=== PATIENT | female | born 1965 | race Caucasian/White ===

== ENCOUNTER 2023-07-17 17:05 | Emergency (ER) | payer BC, SELFPAY ==
[2023-07-17 17:11] VITALS: BP 161/100
[2023-07-17 17:35] LABS: % Basophils 1.2 % (0-2); % Eosinophils 6.1 % (0-6); % Immature Granulocytes 0.3 % (0-0.5); % Lymphocytes 31.2 % (20.5-51.1); % Monocytes 7.1 % (1.7-9.3); % Neutrophils 54.1 % (42.2-75.2); Absolute Basophils 0.1 10^3/uL (0-0.2); Absolute Eosinophils 0.6 10^3/uL (0-0.7); Absolute Lymphocytes 3.2 10^3/uL (1.2-3.4); Absolute Monocytes 0.7 10^3/uL (0.1-0.6); Absolute Neutrophils 5.6 10^3/uL (1.4-6.5); Mean Corp Hgb Conc. 36.6 g/dL (33.0-37.0); Mean Corpuscular Hgb 32.7 pg (27.0-31.0); Mean Corpuscular Volume 89.3 fL (81.0-99.0); Mean Platelet Volume 10.5 fL (7.4-10.4); Nucleated Red Blood Cells % 0 %; Platelet Count 288 10^3/uL (130-400); Red Blood Cell Count 4.59 10^6/uL (4.20-5.40); Red Cell Dist. Width 11.7 % (11.5-14.5); White Blood Cell Count 10.3 10^3/uL (4.8-10.8)
[2023-07-17 17:57] LABS: ALT (SGPT) 71 U/L (0-35); AST (SGOT) 74 U/L (14-36); Albumin 4.9 g/dl (3.5-5.0); Alkaline Phosphatase 99 U/L (38-126); Blood Urea Nitrogen 12 mg/dl (7-17); Calcium 9.9 mg/dl (8.4-10.2); Carbon Dioxide 17 mmol/L (22-30); Chloride 106 mmol/L (98-107); Glucose 142 mg/dl (70-99); Lipase 143 U/L (23-300); Potassium 3.3 mmol/L (3.5-5.1); Sodium 138 mmol/L (135-145); Total Bilirubin 0.5 mg/dl (0.2-1.3); Total Protein 7.4 g/dl (6.3-8.2); eGFR > 60.00
[2023-07-17 18:09] LABS: Troponin I < 0.012 ng/ml
[2023-07-17 20:08] VITALS: BMI 28.3
--- NOTE | 2023-07-17 20:13 | ED.GENMED ---
History of Present Illness
General
Chief Complaint: Headache
Source: patient
Exam Limitations: none
Time Seen by Provider: 07/17/23 19:55
Travel History
Have you had any contact with someone who has COVID-19?: No
Do you have any symptoms of coronavirus? Fever > 100 degrees, chills, cough, shortness of breath, sore throat, loss of taste or smell, muscle aches, or headache?: No
History of Present Illness
History of Present Illness:
57-year-old female presents with onset of a migraine headache this morning. She has a history of migraines. This felt just like her migraine she has had in the past. She took a [employer] rescue medicine. Shortly after that she was downstairs and
developed a sensation of numbness and tingling lightheadedness clamminess. The paresthesias were both sides both upper and lower extremities. She then felt she like she was going to pass out and nauseous. Since then she has vomited. She notes
persistent left-sided abdominal pain. She also has persistent slight headache. Headache was gradual in onset just like her migraines have been in the past. No fevers. No known sick contacts. No other complaints at this time
Past History
Past History
ED Past Medical History: Other (Endometriosis)
ED Past Surgical History: Gynecological (Hysterectomy)
Social History
Tobacco: Non-smoker
Alcohol: Occasional
Drug: None
Personal:
Living: with family
Employment: Employed
Family History
Family History: Other (Noncontributory)
Phy Exam
Physical Exam
Physical Exam:
General: Well-appearing female no acute respiratory distress
HEENT: Normocephalic atraumatic
Heart: Regular rate and rhythm
Lungs: Clear no wheeze or rales
Abdomen: Soft tender to the left lower quadrant mild guarding no rebound tenderness normal bowel sounds nondistended
Extremities: No cyanosis
Skin: Warm no rash
Course
Orders/Labs/Results
Orders:
Orders
07/17/23 17:16
Electrocardiogram (*1) Urgent
Reason for Study: Vertigo / Dizzy
EKG- Treatment ONCE
07/17/23 17:23
Complete Blood Count/With Diff Urgent
Comprehensive Metabolic Panel Urgent
Lipase Urgent
Troponin I Urgent
07/17/23 20:04
0.9% Sodium Chloride 1000 ml [Nss] 1,000 ml IV BOLUS
Diphenhydramine [Benadryl] 25 mg IV NOW STA
Ketorolac [Toradol] 15 mg IV NOW STA
Prochlorperazine [Compazine] 10 mg IV NOW STA
07/17/23 20:10
CT Abd/pelvis W Iv Cont Urgent
Comment:
Reason For Exam: llq pain
07/17/23 20:31
Urinalysis Reflex To Culture Urgent
Date Specimen was Collected: 07/17/23
Time Specimen was Collected: 20:27
Urine Microscopic Reflex Cult Urgent
Urine Culture Urgent
NEY Source: U
Specimen Description:
Date Specimen was Collected: 07/17/23
Time Specimen was Collected: 20:27
Abnormal Lab Results
07/17/23 07/17/23
17:23 20:31
MCH 32.7 H pg
(27.0-31.0)
MPV 10.5 H fL
(7.4-10.4)
Absolute Monos (auto) 0.7 H 10^3/uL
(0.1-0.6)
Eosinophils % 6.1 H %
(0-6)
Potassium 3.3 L mmol/L
(3.5-5.1)
Carbon Dioxide 17 L mmol/L
(22-30)
Glucose 142 H mg/dl
(70-99)
AST 74 H U/L
(14-36)
ALT 71 H U/L
(0-35)
Urine Ketones 1+ A
(Negative)
Leukocyte Esterase Rfl Trace A
(Negative)
Urine Bacteria (Reflex) Moderate A
(Negative)
07/17/23 17:23
07/17/23 17:23
Vital Signs
Initial and Last Documented VS:
Initial Vital Signs
Pulse Resp BP Pulse Ox
61 20 161/100 100
07/17/23 17:11 07/17/23 17:11 07/17/23 17:11 07/17/23 17:11
Last Documented Vital Signs
Pulse Resp BP Pulse Ox
61 20 161/100 100
07/17/23 17:11 07/17/23 17:11 07/17/23 17:11 07/17/23 17:11
MDM/Problems Addressed
Differential Diagnosis Includes:
Headache very similar to migraine she has had in the past likely another migraine. Does not describe sudden onset severe headache. Do not assist intracranial hemorrhage. Patient is quite tender on the left lower quadrant to exam. Consider
diverticulitis versus viral illness versus torsion. She does not have a right ovary or uterus but still has left ovary and fallopian tube. Patient still with symptoms of nausea and pain. Will treat for headache with Compazine and Benadryl as well
as Toradol. Fluids ordered. Given tenderness on exam, CT of the abdomen pending
*Critical Care Note
Total Time (30-74mins, 75-104mins- exclusive of procedures): Not Applicable
Update Note
Update Note:
Patient reevaluated feeling much better regarding her headache and abdominal pain. CT scan was reviewed which is negative for acute finding. Suspect possible underlying viral illness causing migraine and abdominal discomfort. Nonetheless patient
is feeling much better. She stable for discharge
ED Attending Note
-
Portions of this chart may have been created with voice recognition software.� Occasional wrong word or��sound alike� substitutions may have occurred due to the inherent limitations of voice recognition software.
Discharge Plan
Departure
Patient Disposition: Home (Routine Discharge)
Date of Disposition: 07/17/23
Time of Disposition: 22:47
Patient with high blood pressure during this ER visit?: No
Discharge Problem:
Headache
Instructions: Migraines (DC)
Prescriptions:
No Action
cetirizine 10 MG tablet
10 mg PO DAILY
Lactobacillus acidophilus [Probiotic] 1 EACH capsule
1 ea PO .IN EVENING
oxycodone-acetaminophen 5 MG/325 MG tablet
1 tab PO Q4HPRN PRN (Reason: pain) Qty: 0 0RF
Referrals:
Chad Lopes CRNP [Family Provider] -
Activity Restrictions/Additional Instructions:
Rest. Continue current medications. Please return if worsening symptoms otherwise follow-up with family doctor
Interventions
Interventions:
*Risk Screen - Suicide Last Done: 07/17/23 20:48
*General Assessment Last Done: 07/17/23 20:08
*Neglect/Abuse Screening Last Done: 07/17/23 20:08
ED- Neurological Assessment Last Done: 07/17/23 20:47
Discharge Date and Time
Print Language: PORTUGUESE
[2023-07-17] MEDS: NSS 1000 IV (20:20)
[2023-07-17] MEDS: COMPAZINE 10 MG IV (20:21)
[2023-07-17] MEDS: BENADRYL 25 MG IV (20:21)
[2023-07-17] MEDS: TORADOL 15 MG IV (20:21)
[2023-07-17 20:36] LABS: Urine Albumin Trace (Neg - Trace); Urine Bilirubin Negative (Negative); Urine Character Clear (Clear); Urine Color Yellow; Urine Glucose Negative (Negative); Urine Ketone 1+ (Negative); Urine Leukocyte Trace (Negative); Urine Nitrite Negative (Negative); Urine Occult Blood Negative (Negative); Urine Urobilinogen Negative (Neg - 1+)
[2023-07-17 20:52] LABS: Urine Squamous Cell >30 /LPF (Few)
[2023-07-17 20:53] LABS: Urine Bacteria Moderate (Negative); Urine Red Blood Cell 0-2 /HPF (0-2); Urine White Cell 0-2 /HPF (0-5)
[2023-07-17 23:01] VITALS: BP 152/94
[2023-07-17 23:02] VITALS: BP 152/94
== END 2023-07-17 23:03 | disposition home or self-care (01) ==
LOC: EMR 17:05
PROVIDERS: Emergency Medicine; Physician Assistant; EMERGENCY PHYSICIAN Emergency Medicine; FAMILY PHYSICIAN Nurse Practitioner Primary Care
DX: R51.9 Headache, unspecified (principal); R42 Dizziness and giddiness; R20.0 Anesthesia of skin; R20.2 Paresthesia of skin; Z88.1 Allergy status to other antibiotic agents; R10.9 Unspecified abdominal pain
CPT/HCPCS: 99285; 96375 ×2; 96361; 96374; 74177; 80053; 81003; 81015; 83690; 84484; 85025; 87086; 93005; Q9967